=== PATIENT | female | born 1985 | race Caucasian/White ===

== ENCOUNTER 2017-05-24 10:32 | Inpatient (IN) | payer BC ==
[2017-05-24] MEDS ORDERED: Lidocaine 1% 50 ML MDV INJECT PRN (11:17)
[2017-05-24] MEDS ORDERED: Sodium Chloride 0.9% 10 ML Syringe FLUSH PRN (11:17)
[2017-05-24] MEDS ORDERED: Oxytocin/Lactated Ringers 10 UNIT/1,000 ML BAG IV SCH ×2 (11:30)
[2017-05-24] MEDS: Lactated Ringers 1,000 ML IV SCH ×3 (11:56→16:58)
[2017-05-24] MEDS ORDERED: Ampicillin 2 GM in Sodium Chloride 0.9% 100 ML IV ONE (12:00)
--- NOTE | 2017-05-24 13:46 | PCM.LDHP ---
L&D History of Present Illness - General Date of Service: 05/24/17 Admit Problem/Dx: Patient Status Order with Admit Dx/Problem 05/24/17 11:17 Patient Status [ADT] Routine Admission Diagnosis/Problem Admission Diagnosis/Problem Source of Information: Patient, Other History Limitations: Reports: No Limitations - History of Present Illness Introduction:: History of present illness: Patient is a 32-year-old 5 para 2021 white female admitted for onset of labor. She was seen earlier in clinic today where she reported decreased movement. A non-stress test was performed and was reactive. 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 Last menstrual period 08/19/16 and is definite. US was performed at 6-3 weeks on 11/10/15 and at 20-3 on 01/19/16 placing her at a final PACHECO of 06/05/17. Patient had menarche at 9, menses occur monthly, and occur every 24-33 days. She has had two spontaneous abortions , one in 02/2014 at nine weeks gestational age and one at 05/2016 at six weeks gestational age. She has had two normal spontaneous vaginal deliveries. Her first child, a boy, was born on 08[birth year]31[birth year] at 39 weeks weighing 7 lbs 5 oz after 9 hours of labor. Her second child, a girl, was born on 02/03/15 at 39-3 weeks weighing 6 lbs 12 oz after 14 hours of labor course: First visit occurred on 11/10/16 at 10-3 weeks. Fundal height growth was normal. Patient had two visits where she reported decreased movement, later having reactive NSTs. She plans to bottle feed. Initial weight was 175 and she now weights 205, a gain of 30 lbs. Vital signs remained stable throughout . Declined TDAP vaccine. Laboratory testing: Patient's blood type is A positive. Antibody screen is negative. Initial labs showed a hemoglobin of 13.0 and a platelet count of 325,000. She is rubella immune and RPR is nonreactive. Hepatitis B surface antigen and HIV assays were both negative. Patient declined chlaymida and gonorrhea assays. Urine culture and screen showed Group B strep. Third trimester labs showed a HGB of 12.3 and platelet count of 280,000. One hour GTT was negative at 109. Allergies: No known drug or food allergies Medications: 1. Clindamycin phosphate 1% external gel (eczema) 2. tabs Past medical history: 1. Eczema 2. Seasonal allergies 3. Umbilical hernia Past surgical history: 1. Knee surgery 2007 2. Oral surgery 2004 Family history: Mother is alive and has RA. Father passed at 70 from leukemia and lymphoma. Two brothers and two sisters are alive and well. Grandparents are all . MGM-old age; MGF-MA; PGM-old age; PGF-mesothelioma. No family history of related problems. Social history: Patient is to [place] Wiggins. 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 She lives in [place], [place]. No usage of alcohol, tobacco, or drugs Review of systems: Skin: eczema on face Lungs: no shortness of breath or cough Heart: no chest pain GI: no diarrhea or constipation : no dysuria Muskuloskeletal: no lower extremity swelling, no muscle pain Physical exam: Last evaluation in clinic (today), showed BP 120/72, weight 205, FHR 141, fundal height 38 cm Skin: eczema patches noted on face HEENT: no lymphadenopathy, no throat erythema Lungs: clear to auscultation, good chest wall expansion Heart: regular rate and rhythm, normal S1 and S2, no murmurs noted Breast: deferred Abdomen: protoberant with , fundal height 38 cm, baby in vertex position Cervical: 3+, 80%, midposition, -3 Extremities: no distal edema noted in extremities Neurologica: no hyperreflexia - Related Data Allergies/Adverse Reactions: Allergies Allergy/AdvReac Type Severity Reaction Status Date / Time No Known Allergies Allergy Verified 03/09/14 06:01 Home Medications: Home Meds Acetaminophen [Tylenol] 650 mg PO Q6H PRN #50 tablet 02/04/15 [Rx] Benzocaine/Menthol [Dermoplast Pain Relief [place]] 1 spray TOP ASDIRECTED PRN #1 canister 02/04/15 [Rx] Docusate Sodium [Colace] 100 mg PO BID PRN #50 cap 02/04/15 [Rx] Ibuprofen [Motrin] 200 - 800 mg PO Q6H PRN #50 tablet 02/04/15 [Rx] Witch Lizet [Tucks] 1 pad TOP ASDIRECTED PRN #50 pad 02/04/15 [Rx] Social & Family History - Tobacco Use Second Hand Smoke Exposure: No - Alcohol Use Days Per Week of Alcohol Use: 0 - Recreational Drug Use Recreational Drug Use: No H&P Review of Systems - Review of Systems: Review Of Systems: See Below L&D Exam - Exam Exam: See Below - Vital Signs Vital Signs: Last Vital Signs Temp 98.2 F 05/24/17 11:17 Pulse 83 05/24/17 11:17 Resp 16 05/24/17 11:17 BP 121/72 05/24/17 11:17 Pulse Ox Weight: 206 lb - Patient Data Lab Results Last 24 hrs: Laboratory Results - last 24 hr 05/24/17 Range/Units 12:00 WBC 12.63 H (3.98-10.04) K/mm3 RBC 3.75 L (3.98-5.22) M/mm3 Hgb 12.3 (11.2-15.7) gm/L Hct 35.3 (34.1-44.9) % MCV 94.1 (79.4-94.8) fl MCH 32.8 H (25.6-32.2) pg MCHC 34.8 (32.2-35.5) g/dl RDW Std Deviation 44.2 (36.4-46.3) fL Plt Count 297 (182-369) K/mm3 MPV 9.7 (9.4-12.3) fl Result Diagrams: 05/24/17 12:00 - Problem List (1) 38 weeks gestation of SNOMED Code(s): 73178600 ICD Code: Z3A.38 - 38 WEEKS GESTATION OF Status: Acute Current Visit: Yes Problem List Initiated/Reviewed/Updated: Yes Orders Last 24hrs: Active Orders 24 hr Category Date Time Status Patient Status [ADT] Routine ADT 05/24/17 11:17 Active Activity as Tolerated [RC] PFP Care 05/24/17 11:17 Active Communication Order [RC] ASDIRECTED Care 05/24/17 11:17 Active Heart Tones [RC] ASDIRECTED Care 05/24/17 11:18 Active Notify Provider [RC] PFP Care 05/24/17 11:17 Active Notify Provider [RC] PRN Care 05/24/17 11:17 Active Peripheral IV Care [RC] . DIRECTED Care 05/24/17 11:18 Active Vital Signs [RC] PER UNIT ROUTINE Care 05/24/17 11:17 Active Regular Diet [DIET] Diet 05/24/17 Lunch Active Ampicillin 1 gm Med 05/24/17 16:00 Active Sodium Chloride 0.9% [Normal Saline] 100 ml IV Q4H Lactated Ringers [Ringers, Lactated] 1,000 ml Med 05/24/17 11:30 Active IV ASDIRECTED Lidocaine 1% [Xylocaine 1%] Med 05/24/17 11:17 Active 50 ml INJECT ONETIME PRN Oxytocin/Lactated Ringers [Pitocin in LR 10 Units/1,000 Med 05/24/17 11:30 Active ML] 10 unit in 1,000 ml IV .CONTINUOUS Oxytocin/Lactated Ringers [Pitocin in LR 10 Units/1,000 Med 05/24/17 11:30 Active ML] 10 unit in 1,000 ml IV TITRATE Sodium Chloride 0.9% [Saline Flush] Med 05/24/17 11:17 Active 10 ml FLUSH ASDIRECTED PRN Electronic Heart Tones Ext w TOCO [WOMSER] Oth 05/24/17 11:17 Ordered Routine Electronic Heart Tones Internal [WOMSER] Per Unit Oth 05/24/17 11:17 Ordered Routine Peripheral IV Insertion Adult [OM.PC] Routine Oth 05/24/17 11:17 Ordered Resuscitation Status Routine Resus Stat 05/24/17 11:17 Ordered Medication Orders Ampicillin Sodium 1 gm/ Sodium (Chloride) 100 mls @ 200 mls/hr IV Q4H MARGOT Lactated Ringer's (Ringers, Lactated) 1,000 mls @ 100 mls/hr IV ASDIRECTED MARGOT Last Admin: 05/24/17 11:56 Dose: 100 mls/hr Oxytocin/Lactated Ringer's (Pitocin In Lr 10 Units/1,000 Ml) 10 unit in 1,000 mls @ 12 mls/hr IV TITRATE MARGOT; 2 MUNITS/MIN PRN Reason: Protocol Oxytocin/Lactated Ringer's (Pitocin In Lr 10 Units/1,000 Ml) 10 unit in 1,000 mls @ 500 mls/hr IV .CONTINUOUS MARGOT Lidocaine HCl (Xylocaine 1%) 50 ml INJECT ONETIME PRN PRN Reason: Breakthrough Pain Sodium Chloride (Saline Flush) 10 ml FLUSH ASDIRECTED PRN PRN Reason: Keep Vein Open Assessment/Plan Comment:: Assessment: 1. 32-year-old female at 38-2 weeks intrauterine admitted for labor. 2. Group B strep positive 3. Patient plans to bottle feed Plan: 1. Expectant management 2. Augment with Pitocin based on contractions 3. Epidural as needed 4. Ampicillin for GBS positive
[2017-05-24] MEDS ORDERED: fentaNYL 100 MCG/2 ML SDV EPIDUR PRN (13:49)
[2017-05-24] MEDS ORDERED: ePHEDrine 50 MG/ML SDV IVPUSH PRN (13:49)
[2017-05-24] MEDS ORDERED: Ondansetron 4 MG/2 ML SDV IVPUSH PRN (13:49)
--- NOTE | 2017-05-24 13:56 | PCM.PREANE ---
Preanesthetic Assessment - Anesthesia/Transfusion/Family Hx Anesthesia History: Prior Anesthesia Without Reaction Family History of Anesthesia Reaction: No Transfusion History: No Prior Transfusion(s) Intubation History: Unknown - Review of Systems General: No Symptoms Pulmonary: No Symptoms Cardiovascular: Palpitations (with ) Gastrointestinal: No Symptoms (GERD) Neurological: No Symptoms Other: Reports: None - Physical Assessment NPO Status Date: 05/24/17 NPO Status Time: 13:30 Pulse: 83 O2 Sat by Pulse Oximetry: 99 Respiratory Rate: 16 Blood Pressure: 121/72 Temperature: 36.8 C Vital Signs: Last Vital Signs Temp 36.8 C 05/24/17 11:17 Pulse 83 05/24/17 11:17 Resp 16 05/24/17 11:17 BP 121/72 05/24/17 11:17 Pulse Ox Height: 1.6 m Weight: 93.44 kg ASA Class: 2 Mental Status: Alert & Oriented x3 Airway Class: Mallampati = 2 Dentition: Reports: Normal Dentition, Caries Thyro-Mental Finger Breadths: 3 Mouth Opening Finger Breadths: 3 ROM/Head Extension: Full Lungs: Clear to Auscultation, Normal Respiratory Effort Cardiovascular: Regular Rate, Regular Rhythm, No Murmurs - Lab Values: Laboratory Last Values WBC 12.63 K/mm3 (3.98-10.04) H 05/24/17 12:00 RBC 3.75 M/mm3 (3.98-5.22) L 05/24/17 12:00 Hgb 12.3 gm/L (11.2-15.7) 05/24/17 12:00 Hct 35.3 % (34.1-44.9) 05/24/17 12:00 MCV 94.1 fl (79.4-94.8) 05/24/17 12:00 MCH 32.8 pg (25.6-32.2) H 05/24/17 12:00 MCHC 34.8 g/dl (32.2-35.5) 05/24/17 12:00 RDW Std Deviation 44.2 fL (36.4-46.3) 05/24/17 12:00 Plt Count 297 K/mm3 (182-369) 05/24/17 12:00 MPV 9.7 fl (9.4-12.3) 05/24/17 12:00 Above labs reviewed and noted. 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: 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 History: Reports: None Dermatologic History: Reports: Eczema - Past Surgical History HEENT Surgical History: Reports: Oral Surgery 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 Surgical History: Reports: Arthroscopic Knee Dermatological Surgical History: Reports: None - SUBSTANCE USE Second Hand Smoke Exposure: No Days Per Week of Alcohol Use: 0 Recreational Drug Use History: No - HOME MEDS Home Medications: Home Meds Acetaminophen [Tylenol] 650 mg PO Q6H PRN #50 tablet 02/04/15 [Rx] Benzocaine/Menthol [Dermoplast Pain Relief [place]] 1 spray TOP ASDIRECTED PRN #1 canister 02/04/15 [Rx] Docusate Sodium [Colace] 100 mg PO BID PRN #50 cap 02/04/15 [Rx] Ibuprofen [Motrin] 200 - 800 mg PO Q6H PRN #50 tablet 02/04/15 [Rx] Witch Lizet [Tucks] 1 pad TOP ASDIRECTED PRN #50 pad 02/04/15 [Rx] - CURRENT (IN HOUSE) MEDS Current Meds: Current Medications Ephedrine Sulfate (Ephedrine Sulfate) 5 mg IVPUSH ASDIRECTED PRN PRN Reason: Hypotension Fentanyl (Sublimaze) 100 mcg EPIDUR Q3H PRN PRN Reason: Pain Fentanyl/Bupivacaine HCl (Fentanyl/Bupivacaine/Ns 2 Mcg-0.125% 100 Ml) 100 ml EPIDUR ASDIRECTED MARGOT Ampicillin Sodium 1 gm/ Sodium (Chloride) 100 mls @ 200 mls/hr IV Q4H MARGOT Lactated Ringer's (Ringers, Lactated) 1,000 mls @ 100 mls/hr IV ASDIRECTED MARGOT Last Admin: 05/24/17 11:56 Dose: 100 mls/hr Oxytocin/Lactated Ringer's (Pitocin In Lr 10 Units/1,000 Ml) 10 unit in 1,000 mls @ 12 mls/hr IV TITRATE MARGOT; 2 MUNITS/MIN PRN Reason: Protocol Oxytocin/Lactated Ringer's (Pitocin In Lr 10 Units/1,000 Ml) 10 unit in 1,000 mls @ 500 mls/hr IV .CONTINUOUS MARGOT Lidocaine HCl (Xylocaine 1%) 50 ml INJECT ONETIME PRN PRN Reason: Breakthrough Pain Ondansetron HCl (Zofran) 4 mg IVPUSH ONETIME PRN PRN Reason: Nausea/Vomiting Sodium Chloride (Saline Flush) 10 ml FLUSH ASDIRECTED PRN PRN Reason: Keep Vein Open Discontinued Medications Ampicillin Sodium 2 gm/ Sodium (Chloride) 100 mls @ 200 mls/hr IV ONETIME ONE Stop: 05/24/17 12:29 Last Admin: 05/24/17 11:57 Dose: 200 mls/hr
[2017-05-24] MEDS ORDERED: Bupivacaine/fentaNYL/NS 100 ML Bag EPIDUR SCH (14:00)
[2017-05-24] MEDS: Ampicillin 1 GM in Sodium Chloride 0.9% 100 ML IV SCH ×2 (16:03→19:44)
--- NOTE | 2017-05-24 22:30 | PCM.SN ---
- Free Text/Narrative Note: Delivery note: Aniyah is a 32-year-old 2 para 2002 white female who was admitted around midday on 05/24/2017 from a clinic appointment having reported contractions. Monitor in clinic showed contractions every 3-4 minutes. She is admitted at about 4 cm, 80% effaced, soft with -3 station. She was started on IV group B strep prophylaxis with ampicillin per protocol. She progressed steadily to complete cervical dilation and within just a few contractions delivered a viable, cleaning, 2830 g (6 pound 3.8 ounce) male infant with Apgars of 7 and 9, a length of 19.0 inches in a occiput posterior position. Delivery occurred at 2157 hrs. The placenta delivered at 2201 hrs. She had a small second-degree laceration which was repaired in routine fashion using 3-0 Monocryl suture. Epidural had been used for analgesia in labor and was adequate for the laceration repair. Pitocin was given after delivery of the baby. The baby was placed on mom's abdomen, cord was clamped 2 and then the father cut the cord. Cord had 3 vessels. The placenta delivered intact in a Gutierrez presentation. It appeared intact, complete and was discarded per patient desire. Patient plans to to bottlefeed the baby. Essman blood loss 100 mL. Condition: Good
[2017-05-24] MEDS ORDERED: Witch Hazel Medicated Pads 100/Jar TOP PRN (22:32)
[2017-05-24] MEDS ORDERED: Bupivacaine 0.25% 10 ML SDV ONE (22:32)
[2017-05-24] MEDS ORDERED: Benzocaine/Menthol 20%-0.5% Spray 56 GM Canister TOP PRN (22:32)
[2017-05-24] MEDS ORDERED: Docusate Sodium 100 MG Cap PO PRN (22:32)
[2017-05-24] MEDS ORDERED: Lanolin 100% Cream 7 GM Tube TOP PRN (22:32)
[2017-05-24] MEDS ORDERED: Acetaminophen 325 MG Tab PO PRN (22:32)
[2017-05-25] MEDS: Ibuprofen 600 MG Tab PO PRN ×3 (04:51→17:29)
--- NOTE | 2017-05-25 09:23 | PCM48HPAN ---
Post Anesthesia Note - EVALUATION WITHIN 48HRS OF ANESTHETIC Vital Signs in Normal Range: Yes Patient Participated in Evaluation: Yes Respiratory Function Stable: Yes Airway Patent: Yes Cardiovascular Function Stable: Yes Hydration Status Stable: Yes Pain Control Satisfactory: Yes Nausea and Vomiting Control Satisfactory: Yes Mental Status Recovered: Yes - COMMENTS/OBSERVATIONS Free Text/Narrative:: Katia is up and walking around this morning. She has not difficulty voiding. She denies back pain, numbness and/or tingling sensations. She is satisfied with the pain control.
--- NOTE | 2017-05-25 15:04 | PCM.SN ---
- Free Text/Narrative Note: Note Subjective: - Lochia amount appropriate, actively voiding and walking. No further concerns. Objective: - Vital signs: afebrile, normotensive - Physical exam: uterine fundus located at umbilicus, nontender; extremities nonedematous, nontender - Labs: WBC 15.52, HGB 11.2, Plt 237 Assessment: - 32 y.o., now s/p who is doing well. PPD #1. - Currently bottle feeding Plan: - Routine care - D/C tomorrow morning
[2017-05-26 04:09] VITALS: BP 116/76
[2017-05-26] MEDS: Ibuprofen 600 MG Tab PO PRN (07:00)
--- NOTE | 2017-05-26 11:31 | PCM.DCSUM1 ---
Discharge Summary - Hospital Course Free Text/Narrative:: Aniyah is a 32-year-old 2 para 2002 white female who was admitted around midday on 05/24/2017 from a clinic appointment having reported contractions. Monitor in clinic showed contractions every 3-4 minutes. She is admitted at about 4 cm, 80% effaced, soft with -3 station. She was started on IV group B strep prophylaxis with ampicillin per protocol. She progressed steadily to complete cervical dilation and within just a few contractions delivered a viable, cleaning, 2830 g (6 pound 3.8 ounce) male infant with Apgars of 7 and 9, a length of 19.0 inches in a occiput posterior position. Delivery occurred at 2157 hrs. The placenta delivered at 2201 hrs. She had a small second-degree laceration which was repaired in routine fashion using 3-0 Monocryl suture. Epidural had been used for analgesia in labor and was adequate for the laceration repair. Pitocin was given after delivery of the baby. The baby was placed on mom's abdomen, cord was clamped 2 and then the father cut the cord. Cord had 3 vessels. The placenta delivered intact in a Gutierrez presentation. It appeared intact, complete and was discarded per patient desire. Patient plans to to bottlefeed the baby. Essman blood loss 100 mL. patient is doing well. Vital signs stable. Lochia is been minimal. She is voiding well and ambulating without concerns. Patient desiring to be discharged. Her platelet count was 297 and her hemoglobin is within normal limits. - Discharge Data Discharge Date: 05/26/17 Discharge Disposition: Home, Self-Care 01 Condition: Good - Patient Instructions Diet: Regular Diet as Tolerated Activity: As Tolerated (No intercourse or tampons until seen back or vaginal discharge results) Driving: May Drive Today Showering/Bathing: May Shower (May take a bath) Notify Provider of: Fever, Increased Pain, Swelling and Redness, Nausea and/or Vomiting - Discharge Plan Home Medications: Home Meds Acetaminophen [Tylenol] 650 mg PO Q6H PRN #50 tablet 02/04/15 [Rx] Benzocaine/Menthol [Dermoplast Pain Relief [place]] 1 spray TOP ASDIRECTED PRN #1 canister 02/04/15 [Rx] Docusate Sodium [Colace] 100 mg PO BID PRN #50 cap 02/04/15 [Rx] Ibuprofen [Motrin] 200 - 800 mg PO Q6H PRN #50 tablet 02/04/15 [Rx] Haley Hinds [Tucks] 1 pad TOP ASDIRECTED PRN #50 pad 02/04/15 [Rx] Patient Handouts: Home Care Instructions for Mom Referrals: Ahmet Otero MD [Primary Care Provider] - (6 week follow up in clinic. Please call for appointments. ) - Discharge Summary/Plan Comment DC Time >30 min.: No Discharge Summary/Plan Comment: Discharge instructions: 1. Discharge home 2. Regular, high fiber diet. 3. Diet and activity discussed with patient 4. Precautions given concern increased pain, bleeding, temperature, signs/ symptoms of DVT/PE 5. Medications per home medication was printed, discussed with and given to the patient 6. Return to clinic-Dr. Otero-6 weeks-[facility]. Diagnosis: Term pregnancydelivered Condition: Good - Patient Data Vitals - Most Recent: Last Vital Signs Temp 37.0 C 05/26/17 03:57 Pulse 72 05/26/17 03:57 Resp 14 05/26/17 03:57 BP 116/76 05/26/17 03:57 Pulse Ox 96 05/26/17 03:57 Weight - Most Recent: 93.44 kg I&O - Last 24 hours: Intake & Output 05/25/17 05/26/17 05/26/17 22:59 06:59 14:59 Intake Total 720 360 Balance 720 360 Med Orders - Current: Current Medications Acetaminophen (Tylenol) 650 mg PO Q4H PRN PRN Reason: mild pain or fever Last Admin: 05/25/17 12:06 Dose: 650 mg Benzocaine/Menthol (Dermoplast Pain Relief [place]) 0 gm TOP ASDIRECTED PRN PRN Reason: Perineal Comfort Measure Last Admin: 05/24/17 23:19 Dose: 1 canister Docusate Sodium (Colace) 100 mg PO BID PRN PRN Reason: Constipation Emollient Ointment (Lansinoh Hpa) 0 gm TOP ASDIRECTED PRN PRN Reason: Sore Nipples Ibuprofen (Motrin) 600 mg PO Q4H PRN PRN Reason: Mild pain or fever Last Admin: 05/26/17 07:00 Dose: 600 mg Witch Lizet (Tucks) 1 pad TOP ASDIRECTED PRN PRN Reason: Hemorrhoid pain Last Admin: 05/24/17 23:20 Dose: 1 tub Discontinued Medications Ephedrine Sulfate (Ephedrine Sulfate) 5 mg IVPUSH ASDIRECTED PRN PRN Reason: Hypotension Fentanyl (Sublimaze) 100 mcg EPIDUR Q3H PRN PRN Reason: Pain Last Admin: 05/24/17 14:13 Dose: 100 mcg Fentanyl/Bupivacaine HCl (Fentanyl/Bupivacaine/Ns 2 Mcg-0.125% 100 Ml) 100 ml EPIDUR ASDIRECTED MARGOT Last Admin: 05/24/17 14:16 Dose: 100 ml Ampicillin Sodium 2 gm/ Sodium (Chloride) 100 mls @ 200 mls/hr IV ONETIME ONE Stop: 05/24/17 12:29 Last Admin: 05/24/17 11:57 Dose: 200 mls/hr Ampicillin Sodium 1 gm/ Sodium (Chloride) 100 mls @ 200 mls/hr IV Q4H MARGOT Last Admin: 05/24/17 19:44 Dose: 200 mls/hr Lactated Ringer's (Ringers, Lactated) 1,000 mls @ 100 mls/hr IV ASDIRECTED MARGOT Last Admin: 05/24/17 16:58 Dose: 100 mls/hr Oxytocin/Lactated Ringer's (Pitocin In Lr 10 Units/1,000 Ml) 10 unit in 1,000 mls @ 12 mls/hr IV TITRATE MARGOT; 2 MUNITS/MIN PRN Reason: Protocol Last Titration: 05/24/17 23:19 Dose: 250 mls/hr Oxytocin/Lactated Ringer's (Pitocin In Lr 10 Units/1,000 Ml) 10 unit in 1,000 mls @ 500 mls/hr IV .CONTINUOUS MARGOT Lidocaine HCl (Xylocaine 1%) 50 ml INJECT ONETIME PRN PRN Reason: Breakthrough Pain Ondansetron HCl (Zofran) 4 mg IVPUSH ONETIME PRN PRN Reason: Nausea/Vomiting Sodium Chloride (Saline Flush) 10 ml FLUSH ASDIRECTED PRN PRN Reason: Keep Vein Open *Q Meaningful Use (DIS) - VTE *Q VTE Criteria *Q: - Stroke *Q Stroke Criteria *Q: - AMI *Q AMI Criteria *Q:
== END 2017-05-26 11:50 | disposition home or self-care (01) | DRG 560 ==
LOC: JD.OB 10:32 → OBSVTOIN 21:57
PROVIDERS: ADMIT Obstetrics & Gynecology; ATTEND Obstetrics & Gynecology
PROC: 10E0XZZ Delivery of Products of Conception, External Approach (ICD-10-PCS; principal; 2017-05-24)
PROC: 10907ZC Drainage of Amniotic Fluid, Therapeutic from Products of Conception, Via Natural or Artificial Opening (ICD-10-PCS; 2017-05-24)
PROC: 0KQM0ZZ Repair Perineum Muscle, Open Approach (ICD-10-PCS; 2017-05-24)
PROC: 00HU33Z Insertion of Infusion Device into Spinal Canal, Percutaneous Approach (ICD-10-PCS; 2017-05-24)
PROC: 3E0R3CZ (ICD-10-PCS; 2017-05-24)
DX: O99.824 Streptococcus B carrier state complicating childbirth (principal); O69.81X0 Labor and delivery complicated by cord around neck, without compression, not applicable or unspecified; O70.1 Second degree perineal laceration during delivery; Z3A.38 38 weeks gestation of pregnancy; Z37.0 Single live birth
CPT/HCPCS: 01967; 36415; 81003; 85027; A9270-GY; J0290; J2590; J3010; J7030; J7120

== ENCOUNTER 2019-03-11 06:43 | Day surgery (SDC) | payer BC ==
[~2019-03-11 06:43] MED LIST: Lactated Ringers 1,000 ML IV SCH; Lidocaine 1%/Sod Bicarbonate in NS 8.4% 1 ML Syringe IDERM PRN; Sodium Chloride 0.9% 10 ML Syringe FLUSH PRN
[2019-03-11] MEDS ORDERED: Ketorolac 30 MG/ML SDV ONE (06:59)
[2019-03-11] MEDS ORDERED: ceFAZolin 1 GM Vial ONE (06:59)
[2019-03-11] MEDS ORDERED: Midazolam 1 MG/ML 2 ML SDV ONE (06:59)
[2019-03-11] MEDS ORDERED: Ondansetron 4 MG/2 ML SDV ONE (06:59)
[2019-03-11] MEDS ORDERED: Propofol 200 MG/20 ML SDV ONE (06:59)
[2019-03-11] MEDS ORDERED: fentaNYL 250 MCG/5 ML SDV ONE (06:59)
[2019-03-11] MEDS ORDERED: Dexamethasone 4 MG/ML SDV ONE (06:59)
--- NOTE | 2019-03-11 07:20 | PCM.PREANE ---
Preanesthetic Assessment - Anesthesia/Transfusion/Family Hx Anesthesia History: Prior Anesthesia Without Reaction Family History of Anesthesia Reaction: No Transfusion History: No Prior Transfusion(s) Intubation History: Unknown - Review of Systems General: Other (umbilical hernia, c/o dysmennorhea) Pulmonary: No Symptoms Cardiovascular: No Symptoms Gastrointestinal: No Symptoms Neurological: No Symptoms Other: Reports: None - Physical Assessment NPO Status Date: 03/10/19 NPO Status Time: 18:00 Pulse: 72 O2 Sat by Pulse Oximetry: 99 Respiratory Rate: 16 Blood Pressure: 112/71 Weight: 70.5 kg ASA Class: 1 Mental Status: Alert & Oriented x3 Airway Class: Mallampati = 2 Dentition: Reports: Normal Dentition Thyro-Mental Finger Breadths: 3 Mouth Opening Finger Breadths: 3 ROM/Head Extension: Full Lungs: Clear to Auscultation, Normal Respiratory Effort Cardiovascular: Regular Rate, Regular Rhythm - Allergies Allergies/Adverse Reactions: Allergies Allergy/AdvReac Type Severity Reaction Status Date / Time No Known Allergies Allergy Verified 03/09/14 06:01 - Blood Blood Available: No Product(s) Available: None - Anesthesia Plan Pre-Op Medication Ordered: None - Acknowledgements Anesthesia Type Planned: General Anesthesia Pt an Appropriate Candidate for the Planned Anesthesia: Yes Alternatives and Risks of Anesthesia Discussed w Pt/Guardian: Yes Pt/Guardian Understands and Agrees with Anesthesia Plan: Yes PreAnesthesia Questionnaire 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: 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 History: Reports: None Dermatologic History: Reports: Eczema - Past Surgical History HEENT Surgical History: Reports: Oral Surgery 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 Surgical History: Reports: Arthroscopic Knee Dermatological Surgical History: Reports: None - HOME MEDS Home Medications: Home Meds Acetaminophen [Tylenol] 650 mg PO Q6H PRN #50 tablet 02/04/15 [Rx] Benzocaine/Menthol [Dermoplast Pain Relief [place]] 1 spray TOP ASDIRECTED PRN #1 canister 02/04/15 [Rx] Docusate Sodium [Colace] 100 mg PO BID PRN #50 cap 02/04/15 [Rx] Ibuprofen [Motrin] 200 - 800 mg PO Q6H PRN #50 tablet 02/04/15 [Rx] Witch Lizet [Tucks] 1 pad TOP ASDIRECTED PRN #50 pad 05/13/15 [Rx] - CURRENT (IN HOUSE) MEDS Current Meds: Current Medications Lactated Ringer's (Ringers, Lactated) 1,000 mls @ 125 mls/hr IV ASDIRECTED MARGOT Stop: 03/11/19 23:00 Lidocaine/Sodium Bicarbonate (Buffered Lidocaine 1% In Ns 8.4%) 0.25 ml IDERM ONETIME PRN PRN Reason: Prior to IV Start Stop: 03/11/19 18:00 Sodium Chloride (Saline Flush) 10 ml FLUSH ASDIRECTED PRN PRN Reason: Keep Vein Open Stop: 03/11/19 18:00 Discontinued Medications Cefazolin Sodium (Ancef) Confirm Administered Dose 2 gm .ROUTE .STK-MED ONE Stop: 03/11/19 07:00 Dexamethasone (Dexamethasone) Confirm Administered Dose 4 mg .ROUTE .STK-MED ONE Stop: 03/11/19 07:00 Fentanyl (Sublimaze) Confirm Administered Dose 250 mcg .ROUTE .STK-MED ONE Stop: 03/11/19 07:00 Ketorolac Tromethamine (Toradol) Confirm Administered Dose 30 mg .ROUTE .STK- MED ONE Stop: 03/11/19 07:00 Midazolam HCl (Versed 1 Mg/Ml) Confirm Administered Dose 2 mg .ROUTE .STK-MED ONE Stop: 03/11/19 07:00 Ondansetron HCl (Zofran) Confirm Administered Dose 4 mg .ROUTE .STK-MED ONE Stop: 03/11/19 07:00 Propofol (Diprivan 20 Ml) Confirm Administered Dose 200 mg .ROUTE .STK-MED ONE Stop: 03/11/19 07:00
[2019-03-11] MEDS ORDERED: Ketorolac 30 MG/ML SDV IVPUSH SCH (08:15)
[2019-03-11] MEDS ORDERED: Ondansetron 4 MG/2 ML SDV IVPUSH PRN (08:15)
[2019-03-11] MEDS ORDERED: fentaNYL 100 MCG/2 ML SDV IVPUSH PRN (08:21)
--- NOTE | 2019-03-11 08:21 | PCM.POSTAN ---
POST ANESTHESIA ASSESSMENT - MENTAL STATUS Mental Status: Alert, Oriented - VITAL SIGNS Pulse Rate: 67 SaO2: 97 Resp Rate: 16 Blood Pressure: 110/76 Temperature: 36.4 C - RESPIRATORY Respiratory Status: Respiratory Rate WNL, Airway Patent, O2 Saturation Stable, Supplemental Oxygen - CARDIOVASCULAR CV Status: Pulse Rate WNL, Blood Pressure Stable - GASTROINTESTINAL GI Status: No Symptoms - PAIN Pain Score: 0 - POST OP HYDRATION Hydration Status: Adequate & Stable
--- NOTE | 2019-03-11 08:24 | PCM.OPNOTE ---
- General Post-Op/Procedure Note Date of Surgery/Procedure: 03/11/19 Operative Procedure(s): Hysteroscopy, NovaSure endometrial ablation Findings: Endometrial lining of the uterus was found to be relatively normal in appearance. There is no polypoid activity. Both tubal ostia were identified. No evidence of pathology present. Uterus sounded to 6-1/2 cm, cervix 2 cm in length. Width was 4.3 cm. The energy level was 154. The duration of treatment was 44 seconds Pre Op Diagnosis: 1. Dysmenorrhea. 2. Irregular menses Post-Op Diagnosis: Same Anesthesia Technique: General LMA Primary Surgeon: Ahmet Otero Fluid Replacement, Intraop: 700 EBL in mLs: 2 Complications: None Condition: Good Free Text/Narrative:: Surgery duration: 12 minutes Procedure: Patient was instructed as to procedure, its risks, benefits, limitations and follow-up and had signed a consent for surgery. The patient is taken the operative placed in a supine position on the operating table. She received 2 g of Ancef preoperatively for infection prophylaxis and had sequential compression stockings in place for DVT prophylaxis. Patient was given general anesthesia and an LMA was placed for ventilation. She is placed in a dorsal lithotomy position and prepped and draped in usual fashion. An exam under anesthesia was performed. Findings as described above. A weighted speculum was placed in the vagina. Cervix is visualized. It was grasped anteriorly with a single-tooth tenaculum. Uterus was then sounded to a depth of 9 cm. The cervix was dilated to allow passage of a 5 mm 12 rigid hysteroscope. This was placed without problem and normal saline was used as a distending medium. The endometrial cavity was visualized. Findings as described above. Endometrial ablation was then performed. The cervix was dilated to allow placement of the NovaSure endometrial apparatus. Uterine cavity was 6-1/2 cm in length, cervix to an cm in length and width of the endometrial cavity was 4.3 cm. Power was 154. The NovaSure device was set to 6.5 centimeters. Uterine cavity integrity check was then performed, was successful and the endometrial cavity was then ablated. The ablation took approximately 44 seconds. The array was collapsed and the apparatus was removed. Hysteroscope was then placed back into the endometrial cavity. Blood was flushed out and the findings were consistent with a cauterized endometrial cavity. At this point the scope was removed. The vagina was cleared of old blood , the cervix was released and the weighted speculum was removed. Patient was returned to supine position and awakened from general anesthesia. She tolerated the procedure well and operating room in good condition.
--- NOTE | 2019-03-11 09:21 | PCM48HPAN ---
Post Anesthesia Note - EVALUATION WITHIN 48HRS OF ANESTHETIC Vital Signs in Normal Range: Yes Patient Participated in Evaluation: Yes Respiratory Function Stable: Yes Airway Patent: Yes Cardiovascular Function Stable: Yes Hydration Status Stable: Yes Pain Control Satisfactory: Yes Nausea and Vomiting Control Satisfactory: Yes Mental Status Recovered: Yes Pulse Rate: 67 Resp Rate: 14 Temperature: 36.4 C Blood Pressure: 110/76
[2019-03-11 10:50] VITALS: BP 112/68
== END 2019-03-11 10:55 | disposition home or self-care (01) ==
LOC: JD.SDS 06:43
PROVIDERS: ATTEND Obstetrics & Gynecology
DX: N92.0 Excessive and frequent menstruation with regular cycle (principal); N92.6 Irregular menstruation, unspecified; N94.6 Dysmenorrhea, unspecified; K42.9 Umbilical hernia without obstruction or gangrene; L30.9 Dermatitis, unspecified; Z87.891 Personal history of nicotine dependence; Z79.3 Long term (current) use of hormonal contraceptives
CPT/HCPCS: 36415; 58563; 81025; 85025; J0690; J1100; J1885; J2250; J2405; J2704; J3010; J7120; 00952